=== PATIENT | male | born 1985 | race Caucasian/White ===

== ENCOUNTER 2017-06-23 20:01 | Emergency (ER) | payer BC ==
[~2017-06-23] VITALS: Ht 175.3 cm; Wt 93.9 kg
[~2017-06-23 20:01] MED LIST: NOHOMEMEDS
[2017-06-23 22:45] LABS: HEMATOCRIT 43.3 % (38.0-50.0); HEMOGLOBIN 15.7 G/DL (12.5-16.6); MCH 29.6 PG (29.0-34.0); MCHC 36.3 G/DL (30.0-36.0); MCV 81.7 FL (86-99); PLATELET COUNT 284 K/uL (156-360); RBC DIS.WIDTH-CV 12.2 % (11.8-14.6); RBC DIS.WIDTH-SD 36.2 % (39-53); WHITE BLOOD COUNT 9.7 K/uL (4.1-10.2)
[2017-06-23 22:53] LABS: ALBUMIN 4.8 g/dL (3.2-4.8); CHLORIDE 102 mEq/L (99-109); POTASSIUM 3.7 mEq/L (3.7-5.4); SODIUM 140 mEq/L (136-147)
[2017-06-23 22:56] LABS: GLUCOSE 237 mg/dL (70-99); TOTAL PROTEIN 8.3 g/dL (6.4-8.3)
[2017-06-23 22:58] LABS: TOTAL BILIRUBIN 0.4 mg/dL (0.0-1.0)
[2017-06-23 22:59] LABS: ALKALINE PHOSPHATASE 104 IU/L (3-129); SERUM ETHYL ALCOHOL < 10 mg/dL
[2017-06-23 23:00] LABS: CREATININE 0.9 mg/dL (0.6-1.3); GFR ESTIMATE (CALCULATED) > 59 mL/min/ (58.99-99999)
[2017-06-23 23:01] LABS: AST (GOT) 22 IU/L (2-34); UREA NITROGEN (BUN) 10 mg/dL (9-23)
[2017-06-23 23:02] LABS: ALT (GPT) 44 IU/L (3-49)
[2017-06-23 23:23] VITALS: BP 158/101
== END 2017-06-23 23:33 | disposition home or self-care (01) ==
LOC: EME 20:01
PROVIDERS: Emergency Medicine
DX: F43.21 Adjustment disorder with depressed mood (principal); Z04.6 Encounter for general psychiatric examination, requested by authority; S51.812A Laceration without foreign body of left forearm, initial encounter; W26.9XXA Contact with unspecified sharp object(s), initial encounter; F32.9 Major depressive disorder, single episode, unspecified; Z91.5 Personal history of self-harm
CPT/HCPCS: 80053; 81003; 85027; 90837; 99281; 99285; G0480

== ENCOUNTER 2017-07-01 12:27 | Emergency (ER) | payer BC ==
[~2017-07-01] VITALS: Ht 175.3 cm; Wt 97.0 kg
[2017-07-01 14:33] LABS: HEMATOCRIT 45.3 % (38.0-50.0); HEMOGLOBIN 16.1 G/DL (12.5-16.6); MCH 29.5 PG (29.0-34.0); MCHC 35.5 G/DL (30.0-36.0); MCV 83.1 FL (86-99); PLATELET COUNT 274 K/uL (156-360); RBC DIS.WIDTH-CV 12.3 % (11.8-14.6); RBC DIS.WIDTH-SD 37.2 % (39-53); RED BLOOD COUNT 5.45 M/uL (4.00-5.50); WHITE BLOOD COUNT 9.3 K/uL (4.1-10.2)
[2017-07-01 14:42] LABS: CHLORIDE 99 mEq/L (99-109); POTASSIUM 4.6 mEq/L (3.7-5.4)
[2017-07-01 14:43] LABS: SODIUM 137 mEq/L (136-147)
[2017-07-01 14:44] LABS: GLUCOSE 246 mg/dL (70-99)
[2017-07-01 14:47] LABS: SERUM ETHYL ALCOHOL < 10 mg/dL
[2017-07-01 14:48] LABS: CREATININE 0.9 mg/dL (0.6-1.3); GFR ESTIMATE (CALCULATED) > 59 mL/min/ (58.99-99999)
[2017-07-01 14:49] LABS: UREA NITROGEN (BUN) 10 mg/dL (9-23)
[2017-07-01] MEDS ORDERED: ATIVAN1 MG PO (15:22)
[2017-07-01 15:45] VITALS: BP 151/89
== END 2017-07-01 15:46 | disposition home or self-care (01) ==
LOC: EME 12:27
PROVIDERS: Emergency Medicine Emergency Medical Services
DX: F32.9 Major depressive disorder, single episode, unspecified (principal); F43.10 Post-traumatic stress disorder, unspecified; R73.9 Hyperglycemia, unspecified; G47.00 Insomnia, unspecified; F12.90 Cannabis use, unspecified, uncomplicated
CPT/HCPCS: 80048; 85027; 99281; 99285; G0480